=== PATIENT | female | born 2000 | race Two or more races ===

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

== ENCOUNTER 2021-11-04 17:12 | Emergency (ER) | payer MEDICAID ==
[~2021-11-04] VITALS: Ht 157.5 cm; Wt 86.2 kg
--- NOTE | 2021-11-04 17:25 | NUR ---
The patient bib mother for c/o abd pain x 2 weeks, 06/25 ps, +N/V/D. Abdomen soft and non-distended. Respiration regular and unlabored. Will continue to monitor the patient.
--- NOTE | 2021-11-04 17:29 | NUR ---
URINE COLLECTED AND SENT TO THE LAB
[2021-11-04] MEDS ORDERED: ONDANSETRON HCL/PF 4 MG/2 ML VIAL ONE (17:43)
[2021-11-04] MEDS ORDERED: PANTOPRAZOLE 40 MG VIAL ONE (17:43)
[2021-11-04] MEDS ORDERED: MORPHINE SULFATE INJ 2 MG/ML DISP.SYRIN ONE (17:43)
[2021-11-04] MEDS ORDERED: MORPHINE SULFATE INJ 2 MG/ML DISP.SYRIN IV ONE (18:00)
[2021-11-04] MEDS ORDERED: ONDANSETRON HCL/PF 4 MG/2 ML VIAL IVP ONE (18:00)
[2021-11-04] MEDS ORDERED: PANTOPRAZOLE 40 MG VIAL IV ONE (18:00)
[2021-11-04] MEDS ORDERED: IV NS 0.9% 1,000 ML BAG IV ONE (18:00)
[2021-11-04 18:03] LABS: BASOPHILS % (AUTO) 0.7 % (0.0-2.0); EOSINOPHILS % (AUTO) 3.2 % (0.0-6.0); HEMATOCRIT 41 % (33-45); HEMOGLOBIN 13.8 g/dL (11.5-14.8); LYMPHOCYTES # (AUTO) 1.6 K/uL (0.8-4.8); LYMPHOCYTES % (AUTO) 25.7 % (20.0-44.0); MEAN CORPUSCULAR HGB CONC 34 g/dl (31.0-36.0); MEAN CORPUSCULAR VOLUME 90 fL (82-100); MONOCYTES # (AUTO) 0.5 K/uL (0.1-1.30); MONOCYTES % (AUTO) 7.8 % (2.0-12.0); NEUTROPHILS % (AUTO) 62.6 % (43.0-81.0); PLATELET COUNT (AUTO) 350 K/uL (150-450); RED BLOOD CELL COUNT(AUTO) 4.53 MIL/uL (4.0-5.2); WHITE BLOOD COUNT (AUTO) 6.4 K/uL (4.3-11.0)
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
[2021-11-04 18:16] LABS: CALCIUM, SERUM 8.8 mg/dL (8.5-10.1); CREATININE 0.7 mg/dL (0.6-1.3); POTASSIUM 3.5 mmol/L (3.5-5.1)
[2021-11-04 18:21] LABS: BILIRUBIN,DIRECT 0.1 mg/dL (0.0-0.2); BILIRUBIN,TOTAL 0.2 mg/dL (0.2-1.0); TOTAL PROTEIN, SERUM 8.5 g/dL (6.4-8.2)
--- NOTE | 2021-11-04 18:46 | NUR ---
PT TAKEN TO CT
[2021-11-04 18:53] LABS: BILIRUBIN,URINE Negative (NEGATIVE); COLOR,URINE YELLOW (YELLOW); LEUKOCYTE ESTERASE ,URINE Negative (NEGATIVE); NITRITE, URINE Negative (NEGATIVE); PROTEIN,URINE Negative (NEGATIVE); UGLUCOSE Negative (NEGATIVE); UROBILINOGEN,URINE 0.2 EU/dL (0.2)
[2021-11-04 18:54] LABS: BACTERIA,URINE Rare /HPF (None Seen); SQUAMOUS EPITHELIAL CELL,UR Few /HPF (None Seen); WBC,URINE NONE SEEN /HPF (0-3)
--- NOTE | 2021-11-04 19:03 | NUR ---
PT RETURNED FROM CT
[2021-11-04] MEDS ORDERED: PIPERACILLIN /TAZOBACTAM 3.375 G VIAL IV ONE (20:07)
[2021-11-04] MEDS ORDERED: HYDR-3972 PO (20:09)
[2021-11-04] MEDS ORDERED: AMOX-430 PO (20:09)
[2021-11-04] MEDS ORDERED: ONDA4TAB5 PO (20:09)
[2021-11-04] MEDS ORDERED: PIPERACILLIN /TAZOBACTAM 3.375 G in IV D5W 50 ML IV ONE (20:30)
[2021-11-04 21:39] VITALS: BP 113/81
--- NOTE | 2021-11-04 21:40 | NUR ---
Patient discharged to home in stable condition.RX , Written and verbal after care instructions given. Patient verbalizes understanding of instruction.IV removed. Catheter intact and site benign. Pressure and 4x4 applied to site. No bleeding noted.
== END 2021-11-04 21:40 | disposition home or self-care (01) ==
LOC: ER 17:15
DX: K52.9 Noninfective gastroenteritis and colitis, unspecified (principal); F17.290 Nicotine dependence, other tobacco product, uncomplicated
CPT/HCPCS: 36415; 74176; 80048; 80076; 81001; 83690; 84703; 85025; 96361; 96365; 96375; 99284; C9113; J2270; J2405; J2543 ×2; J7030; J7060

== ENCOUNTER 2022-02-24 00:16 | Emergency (ER) | payer MEDICAID ==
[~2022-02-24] VITALS: Ht 154.9 cm; Wt 86.2 kg
[~2022-02-24 00:16] MED LIST: AMOX-430 PO; HYDR-3972 PO; ONDA4TAB5 PO
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
[2022-02-24] MEDS ORDERED: KETOROLAC TROMETHAMINE INJ 60 MG/2 ML VIAL IM ONE ×2 (00:26→00:30)
[2022-02-24] MEDS ORDERED: NABU-139 PO (00:27)
--- NOTE | 2022-02-24 01:09 | NUR ---
RAD AT BED SIDE
[2022-02-24 01:51] VITALS: BP 125/79
--- NOTE | 2022-02-24 01:51 | NUR ---
Patient discharged to home in stable condition. Written and verbal after care instructions given. Patient verbalizes understanding of instruction.
== END 2022-02-24 01:51 | disposition home or self-care (01) ==
LOC: ER 00:18
DX: R07.89 Other chest pain (principal); Z79.891 Long term (current) use of opiate analgesic; Z79.899 Other long term (current) drug therapy; V89.2XXA Person injured in unspecified motor-vehicle accident, traffic, initial encounter; Y93.89 Activity, other specified; Y92.89 Other specified places as the place of occurrence of the external cause; Y99.8 Other external cause status
CPT/HCPCS: 71046; 96372; 99283; J1885

== ENCOUNTER 2025-06-19 13:34 | Emergency (ER) | payer MEDICAID ==
[~2025-06-19] VITALS: Ht 157.5 cm; Wt 86.2 kg
[~2025-06-19 13:34] MED LIST changes: +NABU-139 PO
[2025-06-19] MEDS ORDERED: ACETAMINOPHEN ES 500 MG TABLET ONE (14:01)
[2025-06-19] MEDS ORDERED: METOCLOPRAMIDE HCL 10 MG/2 ML VIAL ONE (14:01)
[2025-06-19] MEDS: IV NS 0.9% 1,000 ML BAG IV ONE (14:15)
[2025-06-19] MEDS: METOCLOPRAMIDE HCL 10 MG/2 ML VIAL IV ONE (14:15)
[2025-06-19] MEDS: ACETAMINOPHEN ES 500 MG TABLET PO ONE (14:15)
[2025-06-19 14:30] LABS: CALCIUM, SERUM 8.4 mg/dL (8.5-10.1); CREATININE 0.6 mg/dL (0.6-1.3); SODIUM SERUM 138.0 mmol/L (136-145); UREA NITROGEN, BLOOD 10.0 mg/dL (7-18)
[2025-06-19 14:31] LABS: PLATELET COUNT (AUTO) 360 K/uL (150-450); RED BLOOD CELL COUNT(AUTO) 4.21 MIL/uL (4.0-5.2); RED CELL DISTRIBUTION WIDTH 13.1 % (11.5-15.0); WHITE BLOOD COUNT (AUTO) 8.6 K/uL (4.3-11.0)
[2025-06-19 14:33] LABS: APPEARANCE,URINE CLEAR (CLEAR); BLOOD, URINE 2+ Ery/uL (NEGATIVE); LEUKOCYTE ESTERASE ,URINE NEGATIVE (NEGATIVE); NITRITE, URINE POSITIVE (NEGATIVE); UGLUCOSE NEGATIVE (NEGATIVE)
[2025-06-19 14:36] LABS: ASPARTATE AMINOTRANSFERASE 22.0 U/L (15-37); TOTAL PROTEIN, SERUM 7.4 g/dL (6.4-8.2)
[2025-06-19 14:40] LABS: PREGNANCY TEST URINE QUAL NEGATIVE (NEGATIVE)
[2025-06-19 14:44] LABS: ADD URINE CULTURE YES; SQUAMOUS EPITHELIAL CELL,UR Few /HPF (None Seen)
[2025-06-19] MEDS ORDERED: DICY10CA37 PO (15:57)
[2025-06-19] MEDS ORDERED: ONDA4TAB5 PO (15:57)
[2025-06-19 16:20] VITALS: BP 116/74; TEMP 98.3; O2SAT 98
== END 2025-06-19 16:20 | disposition home or self-care (01) ==
LOC: ER 13:38
DX: R10.9 Unspecified abdominal pain (principal); R11.2 Nausea with vomiting, unspecified; R19.7 Diarrhea, unspecified; K76.0 Fatty (change of) liver, not elsewhere classified; F17.200 Nicotine dependence, unspecified, uncomplicated; Z79.899 Other long term (current) drug therapy
CPT/HCPCS: 99285; 76700; 96374; 96361; 76856; 85025; 80048; 83690; 80076; 84703; 81001; 36415; J2765; J7030